=== PATIENT | male | born 1960 | race Caucasian/White ===

== ENCOUNTER 2019-07-17 09:28 | Observation (INO) | payer BC, OTHER ==
--- NOTE | 2019-07-17 09:37 | ER Document Report ---
ED General - General Chief Complaint: Shoulder Pain Stated Complaint: SHOULDER PAIN Time Seen by Provider: 07/17/19 09:37 Primary Care Provider: BRANDEN GUEVARA MD [HONORARY] - Follow up as needed - [facility] Patient complains to provider of: Shortness of breasts left-sided chest pain with radiation to his left shoul Notes: Ill-appearing 59-year-old male presents with concerning story of some aching left-sided chest pressure with radiation to his left shoulder 07/17. Nothing makes it better or worse. Has been associated profound shortness of breath has been going on for approximately 12 hours. Has never felt like this before. Patient denies history of cardiac disease. Patient does have history of high cholesterol, hypertension. Non-smoker. Family history of myocardial infa rction. Denies fever chills. Patient did have influenza about 2 weeks ago. - Related Data Allergies/Adverse Reactions: No Known Allergies Allergy (Verified 07/17/19 09:50) Past Medical History - Social History Smoking Status: Unknown if Ever Smoked Family History: CAD Review of Systems - Review of Systems Notes: REVIEW OF SYSTEMS: CONSTITUTIONAL: -fevers, -chills EENT: -eye pain, -difficulty swallowing, -nasal congestion CARDIOVASCULAR: positive chest pain, -syncope. RESPIRATORY: -cough, positive SOB GASTROINTESTINAL: -abdominal pain, -nausea, -vomiting, -diarrhea GENITOURINARY: -dysuria, -hematuria MUSCULOSKELETAL: -back pain, -neck pain SKIN: -rash or skin lesions. HEMATOLOGIC: -easy bruising or bleeding. LYMPHATIC: -swollen, enlarged glands. NEUROLOGICAL: -altered mental status or loss of consciousness, -headache, - neurologic symptoms PSYCHIATRIC: -anxiety, -depression. ALL OTHER SYSTEMS REVIEWED AND NEGATIVE. Physical Exam - Vital signs Vitals: Temp Pulse Resp BP Pulse Ox 97.9 F 95 16 139/87 H 100 07/17/19 09:48 07/17/19 09:48 07/17/19 09:48 07/17/19 09:48 07/17/19 09:48 Course - Re-evaluation Re-evalutation: 07/17/19 09:47 Well-appearing 59 mm concerning story left-sided chest pain and shortness of breath. Initial EKG shows no acute ST elevations. - Vital Signs Vital signs: Temp Pulse Resp BP Pulse Ox 97.9 F 95 20 148/101 H 95 07/17/19 09:48 07/17/19 09:48 07/17/19 11:01 07/17/19 11:01 07/17/19 11:01 - Laboratory Result Diagrams: 07/17/19 10:10 07/17/19 10:10 Laboratory results interpreted by me: 07/17/19 10:10 Glucose 121 H - EKG Interpretation by Me EKG shows normal: Sinus rhythm Rate: Normal Rhythm: NSR Additional EKG results interpreted by me: 07/17/19 09:48 Sinus tach 102 bpm, no ST elevations or depressions no pathologic T wave inversions, normal QRS, normal NM interval. Discharge - Discharge Clinical Impression: Chest pain Qualifiers: Chest pain type: unspecified Qualified Code(s): R07.9 - Chest pain, unspecified Condition: Stable Disposition: ADMITTED INPATIENT Admitting Provider: Caty (Hospitalist) Unit Admitted: Telemetry Referrals: BRANDEN GUEVARA MD [HONORARY] - Follow up as needed
[2019-07-17] MEDS ORDERED: ASPIRIN 81 MG TABLET, CHEWABLE PO ONE (09:45)
[2019-07-17] MEDS ORDERED: NITROGLYCERIN 2% OINTMENT 1 GM PACKET TP ONE (09:45)
--- NOTE | 2019-07-17 10:08 | RADIOLOGY REPORT (SQ) ---
EXAM DESCRIPTION: CHEST 2 VIEWS COMPLETED DATE/TIME: 07/17/2019 9:56 am REASON FOR STUDY: SOB COMPARISON: None. EXAM PARAMETERS: NUMBER OF VIEWS: two views TECHNIQUE: Digital Frontal and Lateral radiographic views of the chest acquired. RADIATION DOSE: NA LIMITATIONS: none FINDINGS: LUNGS AND PLEURA: No opacities, masses or pneumothorax. No pleural effusion. MEDIASTINUM AND HILAR STRUCTURES: No masses or contour abnormalities. HEART AND VASCULAR STRUCTURES: Heart normal size. No evidence for failure. BONES: No acute findings. HARDWARE: None in the chest. OTHER: No other significant finding. IMPRESSION: No focal airspace disease or other evidence of acute intrathoracic process. TECHNICAL DOCUMENTATION: JOB ID: [id number] 2010 [employer]- All Rights Reserved Reading location - IP/workstation name: [email or web address]
[2019-07-17 10:22] LABS: ABSOLUTE EOSINOPHILS # (AUTO) 0.1 10^3/uL (0.0-0.6); ABSOLUTE LYMPHOCYTES (AUTO) 1.4 10^3/uL (0.5-4.7); ABSOLUTE MONOCYTES (AUTO) 0.7 10^3/uL (0.1-1.4); ABSOLUTE NEUT (AUTO) 4.6 10^3/uL (1.7-8.2); BASOPHILS % (AUTO) 0.3 % (0-2); EOSINOPHILS % (AUTO) 1.2 % (0-6); HEMOGLOBIN 14.7 g/dL (13.5-17.0); LYMPHOCYTES % (AUTO) 20.8 % (13-45); MEAN CORPUSCULAR HEMOGLOBIN 28.4 pg (27.0-33.4); MEAN CORPUSCULAR HGB CONC 34.3 g/dL (32.0-36.0); MEAN CORPUSCULAR VOLUME 83 fl (80-97); MONOCYTES % (AUTO) 10.1 % (3-13); PLATELET COUNT 217 10^3/uL (150-450); RED BLOOD COUNT 5.19 10^6/uL (4.35-5.55); RED CELL DISTRIBUTION WIDTH 12.7 % (11.5-14.0); SEGMENTED NEUTROPHILS % (AUTO) 67.6 % (42-78); TOTAL CELLS COUNTED % (AUTO) 100 %; WHITE BLOOD COUNT 6.8 10^3/uL (4.0-10.5)
[2019-07-17 10:52] LABS: ANION GAP 11 (5-19); BLOOD UREA NITROGEN 18 mg/dL (7-20); CALCIUM 9.5 mg/dL (8.4-10.2); CARBON DIOXIDE 24 mmol/L (22-30); CHLORIDE 104 mmol/L (98-107); GLUCOSE 121 mg/dL (75-110); POTASSIUM 4.3 mmol/L (3.6-5.0)
[2019-07-17 11:03] LABS: NT PRO BNP 15 pg/mL (<125)
[2019-07-17 11:05] LABS: TROPONIN I < 0.012 ng/mL
[2019-07-17] MEDS ORDERED: ONDANSETRON HCL INJ/PF 4 MG/2 ML SDV IV PRN (12:12)
[2019-07-17] MEDS ORDERED: ONDANSETRON 4 MG TAB.RAPDIS PO PRN (12:12)
[2019-07-17] MEDS ORDERED: MAGNESIUM HYDROXIDE SUSP 30 ML UDCUP PO PRN (12:12)
[2019-07-17] MEDS ORDERED: TEMAZEPAM 7.5 MG CAPSULE PO PRN (12:12)
[2019-07-17] MEDS ORDERED: ACETAMINOPHEN 325 MG TABLET PO PRN (12:12)
[2019-07-17] MEDS ORDERED: OXYCODONE-ACETAMINOPHEN 5-325 MG TABLET PO PRN (12:12)
[2019-07-17] MEDS ORDERED: MORPHINE SULFATE 10 MG/ML INJ IV PRN (12:21)
[2019-07-17] MEDS ORDERED: NITROGLYCERIN 0.4 MG/TAB 25 TAB/BOTTLE SL PRN (12:22)
[2019-07-17] MEDS: PANTOPRAZOLE SODIUM 20 MG TABLET.DR PO SCH (13:05)
[2019-07-17 13:14] LABS: CREATINE KINASE MB 0.78 ng/mL (<4.55)
[2019-07-17 13:20] LABS: TROPONIN I < 0.012 ng/mL
--- NOTE | 2019-07-17 18:10 | PDOC CONSULTATION ---
Consultation-Blank Consultation: CARDIOLOGY CONSULTATION by Dr. Sirena Culp on 07/17/2019. Patient seen at 5:45 PM. 60 minutes spent on this patient more than 50% of time spent in direct patient care. REASON FOR CONSULTATION: Left shoulder and chest pain in a patient with multiple CAD risk factors. CONSULT REQUESTING PROVIDER: Mr. Ashutosh Johnson ANAHI, [facility]. HISTORY OF PRESENT ILLNESS: The patient states that about 10 days ago he was diagnosed with the flu and completed a course of Tamiflu. He usually walks every day and today did walk and had sudden onset of pain in the left scapular region and also which radiated across the shoulder into the left chest. It lasted for a few seconds and recurred. At that time the patient had shortness of breath and was diaphoretic. He states that movements of his left shoulder aggravated the pain. He has no history of injury. There is no history of cough or sputum production. The patient came to make sure that there was no ill effects from the flu that he had contracted few days ago and that this was not secondary to his heart. He has not had pains such as this. He does have a history of hypertension which is well controlled. He is a non-smoker. He has a strong family history of coronary artery disease. He states nitroglycerin did not help his symptoms. At present the patient is pain-free. His EKG shows no acute changes. And so far as troponin I are negative. Past Medical History Cardiac Medical History: Reports: Hypertension Social History Smoking Status: Former Smoker Drugs: None Family History Family History: Strong family history of premature CAD Parental Family History Reviewed: No Children Family History Reviewed: No Sibling(s) Family History Reviewed.: No Medication/Allergy Home Medications: Lisinopril 20 mg PO DAILY 07/17/19 RESUSCITATION STATUS: The patient is a full code. His is his surrogate healthcare decision maker. Allergies/Adverse Reactions: No Known Allergies Allergy (Verified 07/17/19 09:50) Review of Systems Constitutional: PRESENT: other - Tired, but no fever chills or Reiger's. Cardiovascular: PRESENT: Musculoskeletal left scapular pain and chest pain. Denies palpitations PND or orthopnea. Respiratory: PRESENT: dyspnea. Recently diagnosed with flu. He has been treated. There is no asthma COPD. No history of sleep apnea. Neurological: ABSENT: abnormal gait, abnormal speech, confusion, dizziness, focal weakness, syncope Psychiatric: ABSENT: anxiety, depression, homidical ideation, suicidal ideation. Endocrine no history of diabetes mellitus or thyroid disease. No polydipsia polyuria no history of heat or cold intolerance. METABOLIC no history of hyperlipidemia or gout. No history of obesity. RENAL: No history of chronic kidney disease. No history of hematuria pyuria or dysuria. MUSCULOSKELETAL: No history of collagen vascular disease. No history of acute arthritis. HEMATOLOGICAL: No history of anemia or bleeding diathesis or clotting disorders. VASCULAR: No history of DVT. No history of calf claudication. SKIN: No history of yellowish discoloration of the skin. No pruritus. Current Medications Acetaminophen (Tylenol 325 Mg Tablet) 650 mg PO Q4HP PRN PRN Reason: FOR PAIN Stop: 08/16/19 12:11 Atorvastatin Calcium (Lipitor 40 Mg Tablet) 40 mg PO QHS TR Stop: 08/16/19 21:59 Last Admin: 07/17/19 22:30 Dose: Not Given Documented by: Docusate Sodium (Colace 100 Mg Capsule) 100 mg PO DAILY [facility] Stop: 08/17/19 09:59 Enoxaparin Sodium (Lovenox Inj 40 Mg/0.4 Ml Disp.Syrin) 40 mg SUBCUT DAILY TR Stop: 08/17/19 09:59 Lisinopril (Prinivil 10 Mg Tablet) 20 mg PO DAILY [facility] Stop: 08/17/19 09:59 Magnesium Hydroxide (Milk Of Magnesia 30 Ml Udcup) 30 ml PO HSP PRN PRN Reason: FOR CONSTIPATION Stop: 08/16/19 12:11 Morphine Sulfate (Morphine 10 Mg/Ml Inj) 4 mg IV Q4HP PRN PRN Reason: FOR CHEST PAIN Stop: 07/24/19 12:20 Nitroglycerin (Nitrostat 0.4 Mg (1/150 Gr) Tabs 25/Bottle) 1 tab SL Q5MP PRN PRN Reason: FOR CHEST PAIN Stop: 08/16/19 12:21 Ondansetron HCl (Zofran Odt 4 Mg Tablet) 4 mg PO Q6HP PRN PRN Reason: FOR NAUSEA/VOMITING Stop: 08/16/19 12:11 Ondansetron HCl (Zofran Inj/Pf 4 Mg/2 Ml Sdv) 4 mg IV Q6HP PRN PRN Reason: FOR NAUSEA/VOMITING Stop: 08/16/19 12:11 Oxycodone/Acetaminophen (Percocet 5-325 Mg Tablet) 1 tab PO Q6HP PRN PRN Reason: FOR PAIN Stop: 07/24/19 12:11 Pantoprazole Sodium (Protonix [address] Tablet) 20 mg PO Q6AM TR Stop: 08/16/19 12:59 Last Admin: 07/17/19 13:05 Dose: Not Given Documented by: Temazepam (Restoril 7.5 Mg Capsule) 7.5 mg PO HSP PRN PRN Reason: SLEEP OR INSOMNIA Stop: 07/24/19 12:11 Discontinued Medications Aspirin (Aspirin 81 Mg Chewable Tablet) 324 mg PO NOW ONE Stop: 07/17/19 09:46 Last Admin: 07/17/19 10:05 Dose: 324 mg Documented by: Nitroglycerin (Nitrol 2% Ointment 1gm Packet) 1 gm TP NOW ONE Stop: 07/17/19 09:46 Last Admin: 07/17/19 10:05 Dose: 1 gm Documented by: PHYSICAL EXAMINATION: The patient is well-built and well-nourished in no acute distress. Selected Entries 07/17/19 14:34 Temperature 97.9 F Temperature Oral Source Pulse Rate [ 86 Finger] Respiratory 16 Rate Blood Pressure 121/74 [Left Upper Arm ] Blood Pressure 89 Mean [Left Upper Arm] Blood Pressure Supine Position [Left Upper Arm] O2 Sat by Pulse 99 Oximetry Oxygen Delivery Room Air Method ( includes room air) HEAD: Is atraumatic normocephalic. EYES: Pupils are equal round regular reactive to light accommodation. Extraocular movements are normal. There is no conjunctival pallor. There is no scleral icterus. EARS: Tympanic membranes are intact. External auditory canals are clear. NOSE: There is no deviated nasal septum. There is no inflammation nasal mucous membrane MOUTH: Mucous membranes of the mouth are moist. Tongue is moist. There is no ulcers. THROAT: There is no redness of the oropharynx. There is no exudates. SKIN: There is no skin rashes. There is no skin lesions. There is no petechia or ecchymosis. NECK: Is supple. There is no JVD. Carotids are equal there is no bruit there is no lymphadenopathy. There is no goiter. There is no accessory muscle respiration use. Trachea central. LUNGS: Is clear to auscultation percussion without any rhonchi rales wheezing. There is no chest wall tenderness. HEART: S1-S2 is heard. There is no S3 gallop. There is no S4 gallop. There is systolic murmur left sternal border and the apex there is no rub. ABDOMEN: Soft. Nontender. There is no paraspinal megaly. Bowel sounds are well heard. There is no tender areas masses. EXTREMITIES: Femorals are well felt. There is no femoral bruits leg pulses well felt. There is no pedal edema. There is no DVT or cellulitis. There is no calf tenderness. There is no cyanosis or clubbing. PRE PAROLE COUNSELING AIDE: The patient is conscious awake alert oriented x3 with no focal deficits. PSYCHIATRIC:. Patient judgment insight are intact his affect is normal. EKG: EKG shows sinus rhythm with no acute changes. Probably EKG within normal limits. Labs- Entire Visit 07/17/19 07/17/19 07/17/19 10:10 10:10 10:10 WBC 6.8 RBC 5.19 Hgb 14.7 Hct 43.0 MCV 83 MCH 28.4 MCHC 34.3 RDW 12.7 Plt Count 217 Lymph % (Auto) 20.8 [place] % (Auto) 10.1 Eos % (Auto) 1.2 Baso % (Auto) 0.3 Absolute Neuts (auto) 4.6 Absolute Lymphs (auto) 1.4 Absolute Monos (auto) 0.7 Absolute Eos (auto) 0.1 Absolute Basos (auto) 0.0 Seg Neutrophils % 67.6 D-Dimer Sodium 138.9 Potassium 4.3 Chloride 104 Carbon Dioxide 24 Anion Gap 11 BUN 18 Creatinine 0.84 Est GFR ( Amer) > 60 Est GFR (MDRD) Non-Af > 60 Glucose 121 H Calcium 9.5 CK-MB (CK-2) Troponin I < 0.012 NT-Pro-B Natriuret Pep 15 TSH Urine Color Urine Appearance Urine pH Ur Specific [place] Urine Protein Urine Glucose (UA) Urine Ketones Urine Blood Urine Nitrite (Reflex) Urine Bilirubin Urine Urobilinogen Leukocyte Esterase Rfl Urine RBC (Auto) Urine WBC (Reflex) Squamous Epi Cells Auto Urine Mucus (Auto) Urine Ascorbic Acid 07/17/19 07/17/19 07/17/19 10:10 12:30 12:30 WBC RBC Hgb Hct MCV MCH MCHC RDW Plt Count Lymph % (Auto) [place] % (Auto) Eos % (Auto) Baso % (Auto) Absolute Neuts (auto) Absolute Lymphs (auto) Absolute Monos (auto) Absolute Eos (auto) Absolute Basos (auto) Seg Neutrophils % D-Dimer < 0.27 Sodium Potassium Chloride Carbon Dioxide Anion Gap BUN Creatinine Est GFR ( Amer) Est GFR (MDRD) Non-Af Glucose Calcium CK-MB (CK-2) 0.78 Troponin I < 0.012 NT-Pro-B Natriuret Pep TSH 0.55 Urine Color Urine Appearance Urine pH Ur Specific [place] Urine Protein Urine Glucose (UA) Urine Ketones Urine Blood Urine Nitrite (Reflex) Urine Bilirubin Urine Urobilinogen Leukocyte Esterase Rfl Urine RBC (Auto) Urine WBC (Reflex) Squamous Epi Cells Auto Urine Mucus (Auto) Urine Ascorbic Acid 07/17/19 07/17/19 17:50 18:06 WBC RBC Hgb Hct MCV MCH MCHC RDW Plt Count Lymph % (Auto) [place] % (Auto) Eos % (Auto) Baso % (Auto) Absolute Neuts (auto) Absolute Lymphs (auto) Absolute Monos (auto) Absolute Eos (auto) Absolute Basos (auto) Seg Neutrophils % D-Dimer Sodium Potassium Chloride Carbon Dioxide Anion Gap BUN Creatinine Est GFR ( Amer) Est GFR (MDRD) Non-Af Glucose Calcium CK-MB (CK-2) 0.48 Troponin I < 0.012 NT-Pro-B Natriuret Pep TSH Urine Color YELLOW Urine Appearance CLEAR Urine pH 5.0 Ur Specific [place] 1.023 Urine Protein NEGATIVE Urine Glucose (UA) NEGATIVE Urine Ketones NEGATIVE Urine Blood NEGATIVE Urine Nitrite (Reflex) NEGATIVE Urine Bilirubin NEGATIVE Urine Urobilinogen NEGATIVE Leukocyte Esterase Rfl NEGATIVE Urine RBC (Auto) 0 Urine WBC (Reflex) < 1 Squamous Epi Cells Auto <1 Urine Mucus (Auto) RARE Urine Ascorbic Acid NEGATIVE Chest X-Ray 07/17/19 09:45 IMPRESSION: No focal airspace disease or other evidence of acute intrathoracic process. IMPRESSION/RECOMMENDATION: 1. Left shoulder/scapular and left-sided chest pain.. EKG with no acute changes and troponin is negative x3. Most likely this is noncardiac, but patient with multiple CAD risk factors. 2. Hypertension: Well-controlled 3. Systolic murmur? Mitral regurg. Also will get an echocardiogram as an outpatient 4. Recent flu infection. At present no sequela of the flu. 5. Multiple CAD risk factors namely age, hypertension, and strong family history of premature coronary artery disease. Will check lipid levels in the a.m. Later would recommend that the patient have an exercise Cardiolite stress test as an outpatient. Medications reviewed. Medical decision making is of moderate complexity. Medical regimen and management plan discussed with the attending provider on the case. Discussed with the patient. Will recheck the patient's EKG in the morning and also get the patient's lipid panel. 60 minutes spent as patient more than 50% of time spent in direct patient care. The patient can be safely discharged in the a.m. I have given him my cell phone number to contact me if he should have any problems.
[2019-07-17 18:13] LABS: APPEARANCE,URINE CLEAR; BILIRUBIN,URINE NEGATIVE (NEGATIVE); COLOR,URINE YELLOW; GLUCOSE, URINE NEGATIVE (NEGATIVE); KETONES,URINE NEGATIVE (NEGATIVE); PROTEIN,URINE NEGATIVE (NEGATIVE); URINE SPECIFIC GRAVITY 1.023; UROBILINOGEN,URINE NEGATIVE mg/dL (<2.0)
--- NOTE | 2019-07-17 18:30 | PDOC H&P ---
History of Present Illness Admission Date/PCP: 07/17/19 12:11 KIRSTEN NAGEL PA-C History of Present Illness: MALLORY JONES is a 59 year old male who yesterday had some slight shortness of breath and just felt tired.. Patient states that today he started having some left-sided chest pain and pain into his left shoulder. Denies any pain going up into his neck or pain down into his left arm no nausea no vomiting.. He states he also had several seconds of where he just broke out into a "sweat". When it first started the pain was 4 out of 10 in the emergency room and is 3 out of 10.. He is not sure if the Nitropaste has helped very much. Patient has a very strong family history of heart disease both mother and father of MIs and sisters and brothers either have pacemakers or have had cardiac problems Patient himself denies ever having an NE or CVA. His is in the room during the interview.. 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 States he takes a morning walk every morning. He denies tobacco he denies alcohol. The other comorbidity is hypertension on lisinopril for about 5 years now. Was diagnosed with flu a approximately 10 days ago and took a round of Tamiflu and an antibiotic and felt much better following the completion of the medic ation. Actually finished his medicine approximately 5 days ago. Is now to be admitted to rule out cardiac disease. Patient will be seen in consultation by cardiology. Past Medical History Cardiac Medical History: Reports: Hypertension Social History Smoking Status: Former Smoker Drugs: None Family History Family History: CAD Parental Family History Reviewed: No Children Family History Reviewed: No Sibling(s) Family History Reviewed.: No Medication/Allergy Home Medications: Lisinopril 20 mg PO DAILY 07/17/19 Allergies/Adverse Reactions: No Known Allergies Allergy (Verified 07/17/19 09:50) Review of Systems Constitutional: PRESENT: other - Tired Cardiovascular: PRESENT: chest pain Respiratory: PRESENT: dyspnea Neurological: ABSENT: abnormal gait, abnormal speech, confusion, dizziness, focal weakness, syncope Psychiatric: ABSENT: anxiety, depression, homidical ideation, suicidal ideation Physical Exam Vital Signs: Temp Pulse Resp BP Pulse Ox 97.9 F 85 16 121/74 99 07/17/19 16:16 07/17/19 16:16 07/17/19 16:16 07/17/19 16:16 07/17/19 16:16 Intake & Output 07/16/19 07/17/19 07/18/19 06:59 06:59 06:59 Weight 85.7 kg General appearance: PRESENT: no acute distress, other - She is very pleasant does not appear to be in any distress Respiratory exam: PRESENT: clear to auscultation [place]. ABSENT: rales, rhonchi, wheezes Cardiovascular exam: PRESENT: RRR. ABSENT: diastolic murmur, rubs, systolic murmur Neurological exam: PRESENT: alert, awake, oriented to person, oriented to place, oriented to time, oriented to situation, CN II-XII grossly intact. ABSENT: motor sensory deficit Psychiatric exam: PRESENT: appropriate affect, normal mood. ABSENT: homicidal ideation, suicidal ideation Results Laboratory Results: 07/17/19 10:10 07/17/19 10:10 07/17/19 07/17/19 07/17/19 10:10 10:10 12:30 WBC 6.8 RBC 5.19 Hgb 14.7 Hct 43.0 MCV 83 MCH 28.4 MCHC 34.3 RDW 12.7 Plt Count 217 Seg Neutrophils % 67.6 Sodium 138.9 Potassium 4.3 Chloride 104 Carbon Dioxide 24 Anion Gap 11 BUN 18 Creatinine 0.84 Est GFR ( Amer) > 60 Glucose 121 H Calcium 9.5 TSH 0.55 Urine Color Urine Appearance Urine pH Ur Specific [place] Urine Protein Urine Glucose (UA) Urine Ketones Urine Blood Urine RBC (Auto) 07/17/19 17:50 WBC RBC Hgb Hct MCV MCH MCHC RDW Plt Count Seg Neutrophils % Sodium Potassium Chloride Carbon Dioxide Anion Gap BUN Creatinine Est GFR ( Amer) Glucose Calcium TSH Urine Color YELLOW Urine Appearance CLEAR Urine pH 5.0 Ur Specific [place] 1.023 Urine Protein NEGATIVE Urine Glucose (UA) NEGATIVE Urine Ketones NEGATIVE Urine Blood NEGATIVE Urine RBC (Auto) 0 07/17/19 07/17/19 10:10 12:30 CK-MB (CK-2) 0.78 Troponin I < 0.012 < 0.012 NT-Pro-B Natriuret Pep 15 Impressions: Chest X-Ray 07/17/19 09:45 IMPRESSION: No focal airspace disease or other evidence of acute intrathoracic process. Assessment and Plan - Diagnosis (1) Hypertension Is this a current diagnosis for this admission?: Yes (2) Shortness of breath Is this a current diagnosis for this admission?: Yes (3) Chest pain Qualifiers: Chest pain type: unspecified Qualified Code(s): R07.9 - Chest pain, unspecified Is this a current diagnosis for this admission?: Yes - Plan Summary Summary: Patient will be put in observation status and monitored. Patient will have serial troponins. Patient will see cardiology to determine if he needs a work- up as an inpatient or this can be done as an outpatient.. He was not on a statin prior to coming nor was patient on aspirin. Patient is medically stable to move to the floor he and his seem satisfied. - Time Time Spent with patient: 35 or more minutes
[2019-07-17 18:44] LABS: CREATINE KINASE MB 0.48 ng/mL (<4.55)
[2019-07-17 18:52] LABS: TROPONIN I < 0.012 ng/mL
--- NOTE | 2019-07-17 19:05 | Progress Note ---
Provider Note Provider Note: 1900 hrs. I just spoke to Dr. Culp he does not feel that this needs to be worked up as an inpatient, and the patient can be discharged home tomorrow. I did not speak to the patient about this
[2019-07-17] MEDS ORDERED: ATORVASTATIN CALCIUM 40 MG TABLET PO SCH (22:00)
[2019-07-18 01:17] LABS: TROPONIN I < 0.012 ng/mL
[2019-07-18 06:00] LABS: ALBUMIN 4.1 g/dL (3.5-5.0); ALKALINE PHOSPHATASE 57 U/L (38-126); ANION GAP 10 (5-19); ASPARTATE AMINO TRANSFERASE 23 U/L (17-59); BILIRUBIN,DIRECT 0.2 mg/dL (0.0-0.4); BILIRUBIN,TOTAL 0.6 mg/dL (0.2-1.3); BLOOD UREA NITROGEN 20 mg/dL (7-20); CALCIUM 9.4 mg/dL (8.4-10.2); CARBON DIOXIDE 26 mmol/L (22-30); CHLORIDE 104 mmol/L (98-107); CHOLESTEROL 178.18 mg/dL (0-200); GLUCOSE 94 mg/dL (75-110); POTASSIUM 4.6 mmol/L (3.6-5.0); TOTAL PROTEIN 7.2 g/dL (6.3-8.2); TRIGLYCERIDES 315 mg/dL (<150)
[2019-07-18] MEDS: PANTOPRAZOLE SODIUM 20 MG TABLET.DR PO SCH (06:02)
[2019-07-18 06:10] LABS: DIRECT LDL 116 mg/dL (<100)
[2019-07-18] MEDS ORDERED: ENOXAPARIN SODIUM INJ 40 MG/0.4 ML DISP.SYRIN SUBCUT SCH (10:00)
[2019-07-18] MEDS ORDERED: DOCUSATE SODIUM 100 MG CAPSULE PO SCH (10:00)
[2019-07-18] MEDS ORDERED: LISINOPRIL 10 MG TABLET PO SCH (10:00)
--- NOTE | 2019-07-18 11:38 | EKG REPORT ---
SEVERITY:- NORMAL ECG - SINUS RHYTHM : Confirmed by: Richard Escalera 18-Jul-2019 11:38:09
--- NOTE | 2019-07-18 11:39 | EKG REPORT ---
SEVERITY:- ABNORMAL ECG - SINUS TACHYCARDIA CONSIDER ANTEROSEPTAL INFARCT BORDERLINE T WAVE ABNORMALITIES : Confirmed by: Richard Escalera 18-Jul-2019 11:38:19
[2019-07-18 12:07] VITALS: BP 121/74
--- NOTE | 2019-07-18 12:57 | PDOC DISCHARGE SUMMARY ---
Impression - Admit/DC Date/PCP Admission Date/Primary Care Provider: 07/17/19 12:11 KIRSTEN NAGEL PA-C Discharge Date: 07/18/19 - Discharge Diagnosis (1) Chest pain Is this a current diagnosis for this admission?: Yes (2) Hypertension Is this a current diagnosis for this admission?: Yes (3) Shortness of breath Is this a current diagnosis for this admission?: Yes (4) Hyperlipidemia Is this a current diagnosis for this admission?: Yes - Additional Information Resuscitation Status: Full Code Discharge Diet: Cardiac Discharge Activity: Activity As Tolerated, Balance Activity w/Rest Referrals: ASHVIN FLOWER MD [ACTIVE STAFF] - (A MESSAGE WAS LEFT FOR PROVIDER'S OFFICE TO CALL PATIENT.) KIRSTEN NAGEL PA-C [Primary Care Provider] - Prescriptions: Pravastatin Sodium 10 mg PO QHS #30 tablet Home Medications: Lisinopril 20 mg PO DAILY 07/17/19 Pravastatin Sodium 10 mg PO QHS #30 tablet 07/18/19 History of Present Illiness History of Present Illness: Per H&P by Jaelyn Johnson PA-C: MALLORY JONES is a 59 year old male who yesterday had some slight shortness of breath and just felt tired.. Patient states that today he started having some left-sided chest pain and pain into his left shoulder. Denies any pain going up into his neck or pain down into his left arm no nausea no vomiting.. He states he also had several seconds of where he just broke out into a "sweat". When it first started the pain was 4 out of 10 in the emergency room and is 3 out of 10.. He is not sure if the Nitropaste has helped very much. Patient has a very strong family history of heart disease both mother and father of MIs and sisters and brothers either have pacemakers or have had cardiac problems Patient himself denies ever having an ID or CVA. His is in the room during the interview.. 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 States he ta kes a morning walk every morning. He denies tobacco he denies alcohol. The other comorbidity is hypertension on lisinopril for about 5 years now. Was diagnosed with flu a approximately 10 days ago and took a round of Tamiflu and an antibiotic and felt much better following the completion of the medication. Actually finished his medicine approximately 5 days ago. Is now to be admitted to rule out cardiac disease. Patient will be seen in consultation by cardiology. Hospital Course Hospital Course: Patient was admitted to the medical floor and monitored on continuous cardiac telemetry; he had abnormal telemetry findings. Laboratory evaluation was unremarkable with a normal CBC, negative d-dimer, normal chemistry, negative troponins x4, and normal TSH. He was found to have dyslipidemia with an LDL of 116, HDL 22, triglycerides 315. The patient is established with Dr. Patterson who reviewed the patient's telemetry and laboratory evaluation. Per Dr. Flower, he does not require any further inpatient cardiac work-up and is stable for discharge to home with recommendation to start low-dose pravastatin. This was discussed with the patient who is satisfied and eager for discharge to home. He is instructed to follow-up with his primary care provider and with Dr. Holman as instructed. He is further advised to return to the emergency department as needed for concerning symptoms. Physical Exam Vital Signs: Temp Pulse Resp BP Pulse Ox 98.1 F 79 18 121/74 97 07/18/19 12:05 07/18/19 12:05 07/18/19 12:05 07/18/19 12:05 07/18/19 12:05 Intake & Output 07/17/19 07/18/19 07/19/19 06:59 06:59 06:59 Intake Total 240 Output Total 275 Balance -35 Weight 86.3 kg General appearance: PRESENT: no acute distress, well-developed, well-nourished Head exam: PRESENT: atraumatic, normocephalic Eye exam: PRESENT: conjunctiva pink, EOMI, PERRLA. ABSENT: scleral icterus Ear exam: PRESENT: normal external ear exam Mouth exam: PRESENT: moist, tongue midline Respiratory exam: PRESENT: clear to auscultation lyndsey, symmetrical, unlabored. ABSENT: rales, rhonchi, wheezes Cardiovascular exam: PRESENT: RRR, +S1, +S2. ABSENT: diastolic murmur, rubs, systolic murmur Pulses: PRESENT: normal dorsalis pedis pul Vascular exam: PRESENT: normal capillary refill Extremities exam: PRESENT: full ROM. ABSENT: calf tenderness, clubbing, pedal edema Musculoskeletal exam: PRESENT: ambulatory Neurological exam: PRESENT: alert, awake, oriented to person, oriented to place, oriented to time, oriented to situation, CN II-XII grossly intact. ABSENT: mot or sensory deficit Psychiatric exam: PRESENT: appropriate affect, normal mood. ABSENT: homicidal ideation, suicidal ideation Skin exam: PRESENT: dry, intact, warm. ABSENT: cyanosis, rash Results Laboratory Results: WBC 6.8 10^3/uL (4.0-10.5) 07/17/19 10:10 RBC 5.19 10^6/uL (4.35-5.55) 07/17/19 10:10 Hgb 14.7 g/dL (13.5-17.0) 07/17/19 10:10 Hct 43.0 % (37.9-51.0) 07/17/19 10:10 MCV 83 fl (80-97) 07/17/19 10:10 MCH 28.4 pg (27.0-33.4) 07/17/19 10:10 MCHC 34.3 g/dL (32.0-36.0) 07/17/19 10:10 RDW 12.7 % (11.5-14.0) 07/17/19 10:10 Plt Count 217 10^3/uL (150-450) 07/17/19 10:10 Lymph % (Auto) 20.8 % (13-45) 07/17/19 10:10 Brooks % (Auto) 10.1 % (3-13) 07/17/19 10:10 Eos % (Auto) 1.2 % (0-6) 07/17/19 10:10 Baso % (Auto) 0.3 % (0-2) 07/17/19 10:10 Absolute Neuts (auto) 4.6 10^3/uL (1.7-8.2) 07/17/19 10:10 Absolute Lymphs (auto) 1.4 10^3/uL (0.5-4.7) 07/17/19 10:10 Absolute Monos (auto) 0.7 10^3/uL (0.1-1.4) 07/17/19 10:10 Absolute Eos (auto) 0.1 10^3/uL (0.0-0.6) 07/17/19 10:10 Absolute Basos (auto) 0.0 10^3/uL (0.0-0.2) 07/17/19 10:10 Seg Neutrophils % 67.6 % (42-78) 07/17/19 10:10 D-Dimer < 0.27 ug/mL (0.00-0.50) 07/17/19 10:10 Sodium 139.9 mmol/L (137-145) 07/18/19 05:02 Potassium 4.6 mmol/L (3.6-5.0) 07/18/19 05:02 Chloride 104 mmol/L (98-107) 07/18/19 05:02 Carbon Dioxide 26 mmol/L (22-30) 07/18/19 05:02 Anion Gap 10 (5-19) 07/18/19 05:02 BUN 20 mg/dL (7-20) 07/18/19 05:02 Creatinine 0.85 mg/dL (0.52-1.25) 07/18/19 05:02 Est GFR ( Amer) > 60 (>60) 07/18/19 05:02 Est GFR (MDRD) Non-Af > 60 (>60) 07/18/19 05:02 Glucose 94 mg/dL (75-110) 07/18/19 05:02 Calcium 9.4 mg/dL (8.4-10.2) 07/18/19 05:02 Magnesium 1.9 mg/dL (1.6-2.3) 07/18/19 05:02 Total Bilirubin 0.6 mg/dL (0.2-1.3) 07/18/19 05:02 Direct Bilirubin 0.2 mg/dL (0.0-0.4) 07/18/19 05:02 Neonat Total Bilirubin Not Reportable 07/18/19 05:02 Neonat Direct Bilirubin Not Reportable 07/18/19 05:02 Neonat Indirect Bili Not Reportable 07/18/19 05:02 AST 23 U/L (17-59) 07/18/19 05:02 ALT 39 U/L (<50) 07/18/19 05:02 Alkaline Phosphatase 57 U/L (38-126) 07/18/19 05:02 CK-MB (CK-2) 0.60 ng/mL (<4.55) 07/18/19 00:29 Troponin I < 0.012 ng/mL 07/18/19 00:29 NT-Pro-B Natriuret Pep 15 pg/mL (<125) 07/17/19 10:10 Total Protein 7.2 g/dL (6.3-8.2) 07/18/19 05:02 Albumin 4.1 g/dL (3.5-5.0) 07/18/19 05:02 Triglycerides 315 mg/dL (<150) H 07/18/19 05:02 Cholesterol 178.18 mg/dL (0-200) 07/18/19 05:02 LDL Cholesterol Direct 116 mg/dL (<100) H 07/18/19 05:02 VLDL Cholesterol 63.0 mg/dL (10-31) H 07/18/19 05:02 HDL Cholesterol 22 mg/dL (>40) L 07/18/19 05:02 TSH 0.55 uIU/mL (0.47-4.68) 07/17/19 12:30 Urine Color YELLOW 07/17/19 17:50 Urine Appearance CLEAR 07/17/19 17:50 Urine pH 5.0 (5.0-9.0) 07/17/19 17:50 Ur Specific Pauline 1.023 07/17/19 17:50 Urine Protein NEGATIVE mg/dL (NEGATIVE) 07/17/19 17:50 Urine Glucose (UA) NEGATIVE mg/dL (NEGATIVE) 07/17/19 17:50 Urine Ketones NEGATIVE mg/dL (NEGATIVE) 07/17/19 17:50 Urine Blood NEGATIVE (NEGATIVE) 07/17/19 17:50 Urine Nitrite (Reflex) NEGATIVE (NEGATIVE) 07/17/19 17:50 Urine Bilirubin NEGATIVE (NEGATIVE) 07/17/19 17:50 Urine Urobilinogen NEGATIVE mg/dL (<2.0) 07/17/19 17:50 Leukocyte Esterase Rfl NEGATIVE (NEGATIVE) 07/17/19 17:50 Urine RBC (Auto) 0 /HPF 07/17/19 17:50 Urine WBC (Reflex) < 1 /HPF 07/17/19 17:50 Squamous Epi Cells Auto <1 /HPF 07/17/19 17:50 Urine Mucus (Auto) RARE /LPF 07/17/19 17:50 Urine Ascorbic Acid NEGATIVE (NEGATIVE) 07/17/19 17:50 07/17/19 07/17/19 07/17/19 10:10 12:30 18:06 CK-MB (CK-2) 0.78 0.48 Troponin I < 0.012 < 0.012 < 0.012 NT-Pro-B Natriuret Pep 15 07/18/19 00:29 CK-MB (CK-2) 0.60 Troponin I < 0.012 NT-Pro-B Natriuret Pep Impressions: Chest X-Ray 07/17/19 09:45 IMPRESSION: No focal airspace disease or other evidence of acute intrathoracic process. Plan Plan of Treatment: Follow-up with primary care provider within 1 week. Follow-up with Dr. Holman's office as instructed. Eat a cardiac diet. Continue medications as prescribed. Return to the emergency department as needed for concerning symptoms. Time Spent: Less than 30 Minutes Stroke Is this a Stroke Patient?: No Acute Heart Failure - Is this a Heart Failure Patient?: No
--- NOTE | 2019-07-18 22:40 | Progress Note ---
Provider Note Provider Note: CARDIOLOGY PROGRESS NOTE by Dr. Sirena Tobias on 07/18/2019. OBJECTIVE: No further scapular shoulder or chest pains. There is no shortness of breath. There is no PND orthopnea. There is no cough or sputum production. There is no palpitations or near syncope syncope. There is no arrhythmia seen on the monitor. There is no TIA CVA symptoms. PHYSICAL EXAMINATION: The patient is well-built and well-nourished in no acute distress. Selected Entries 07/18/19 07/18/19 03:45 12:05 Temperature 98.1 F Pulse Rate 79 Respiratory 18 Rate Blood Pressure 121/74 [Left Upper Arm ] O2 Sat by Pulse 97 Oximetry Oxygen Delivery Room Air Method HEAD: Is atraumatic normocephalic. EYES: Pupils are equal round regular reactive to light accommodation. Extraocular movements are normal. There is no conjunctival pallor. There is no scleral icterus. EARS: Tympanic membranes are intact. External auditory canals are clear. NOSE: There is no deviated nasal septum. There is no inflammation nasal mucous membrane MOUTH: Mucous membranes of the mouth are moist. Tongue is moist. There is no ulcers. THROAT: There is no redness of the oropharynx. There is no exudates. SKIN: There is no skin rashes. There is no skin lesions. There is no petechia or ecchymosis. NECK: Is supple. There is no JVD. Carotids are equal there is no bruit there is no lymphadenopathy. There is no goiter. There is no accessory muscle respiration use. Trachea central. LUNGS: Is clear to auscultation percussion without any rhonchi rales wheezing. There is no chest wall tenderness. HEART: S1-S2 is heard. There is no S3 gallop. There is no S4 gallop. There is systolic murmur left sternal border and the apex there is no rub. ABDOMEN: Soft. Nontender. There is no paraspinal megaly. Bowel sounds are well heard. There is no tender areas masses. EXTREMITIES: Femorals are well felt. There is no femoral bruits leg pulses well felt. There is no pedal edema. There is no DVT or cellulitis. There is no calf tenderness. There is no cyanosis or clubbing. [employer]: The p atient is conscious awake alert oriented x3 with no focal deficits. PSYCHIATRIC:. Patient judgment insight are intact his affect is normal. Labs- All tests 24 hr 07/18/19 07/18/19 00:29 05:02 Sodium 139.9 Potassium 4.6 Chloride 104 Carbon Dioxide 26 Anion Gap 10 BUN 20 Creatinine 0.85 Est GFR ( Amer) > 60 Est GFR (MDRD) Non-Af > 60 Glucose 94 Calcium 9.4 Magnesium 1.9 Total Bilirubin 0.6 Direct Bilirubin 0.2 Neonat Total Bilirubin Not Reportable Neonat Direct Bilirubin Not Reportable Neonat Indirect Bili Not Reportable AST 23 ALT 39 Alkaline Phosphatase 57 CK-MB (CK-2) 0.60 Troponin I < 0.012 Total Protein 7.2 Albumin 4.1 Triglycerides 315 H Cholesterol 178.18 LDL Cholesterol Direct 116 H VLDL Cholesterol 63.0 H HDL Cholesterol 22 L EKG: Sinus Rhythm. Within Normal Limits. IMPRESSION/RECOMMENDATION: 1. Left shoulder/scapular and left-sided chest pain.. EKG with no acute changes and troponin is negative x3. Most likely this is noncardiac, but patient with multiple CAD risk factors. 2. Hypertension: Well-controlled 3. Hyperlipidemia/dyslipidemia. The patient with low HDL and mildly elevated LDL levels. Hence we will start the patient on pravastatin. 4. Systolic murmur? Mitral regurg. Also will get an echocardiogram as an outpatient 5. Recent flu infection. At present no sequela of the flu. 6. Multiple CAD risk factors namely age, hypertension, and strong family history of premature coronary artery disease. Will check lipid levels in the a.m. Later would recommend that the patient have an exercise Cardiolite stress test as an outpatient. Medications reviewed. Medical regimen and management plan discussed with attending provider. Patient stable to be discharged home. Medical decision making is of moderate complexity. 40 minutes spent as patient with more than 50% of time spent in direct patient care the patient's EKG and lab work and chest x-ray findings were all discussed with the patient and the patient's in detail. We will arrange for outpatient echocardiogram and stress test as mentioned earlier.. Will sign off.
== END 2019-07-18 12:23 | disposition home or self-care (01) ==
LOC: ER 09:28 → INTOOBSV 12:11 → EH 12:11 → 4S 14:30
PROVIDERS: ADMIT Family Medicine; ATTEND Family Medicine
DX: R07.9 Chest pain, unspecified (principal); I10 Essential (primary) hypertension; R06.02 Shortness of breath; E78.5 Hyperlipidemia, unspecified; M25.512 Pain in left shoulder; R61 Generalized hyperhidrosis; R53.83 Other fatigue; Z79.899 Other long term (current) drug therapy; Z82.49 Family history of ischemic heart disease and other diseases of the circulatory system; Z87.891 Personal history of nicotine dependence; Z86.19 Personal history of other infectious and parasitic diseases
CPT/HCPCS: 93005 ×2; 99285; 36415 ×2; 82553 ×2; 83735; 84443; 85025; 80048; 80053; 81001; 84484 ×2; 85379; 80061; 83880; 71046; 93010 ×2; G0378 ×3